=== PATIENT | female | born 1975 | race Caucasian/White ===

== ENCOUNTER 2016-10-21 05:44 | Day surgery (SDC) | payer BC ==
[~2016-10-21 05:44] MED LIST: FISH OIL PO; IRON PO; MULTI VITAMIN1 EAC2 PO; ZOMIG PO
[2016-10-21 06:27] LABS: HCT-HEMATOCRIT 40.2 % (34.0-49.0); HGB-HEMOGLOBIN 13.8 gm/dl (12.0-15.5); MCV (MEAN CELL VOLUME) 89.7 fl (82.0-96.0); RED CELL DISTRIBUTION WIDTH 11.9 % (12.4-16.4)
== END 2016-10-21 13:42 ==
LOC: SRG 05:44 → SHSB 05:45 → ORW 07:25 → PACU 09:16 → SHSB 09:40
PROVIDERS: Anesthesiology
PROC: 0FT44ZZ Resection of Gallbladder, Percutaneous Endoscopic Approach (ICD-10-PCS; principal; 2016-10-21)
DX: K80.10 Calculus of gallbladder with chronic cholecystitis without obstruction (principal); R51 Headache; Z79.899 Other long term (current) drug therapy; Z98.890 Other specified postprocedural states
CPT/HCPCS: J1956; J7030